=== PATIENT | female | born 1990 | race Caucasian/White ===

== ENCOUNTER 2019-03-08 15:16 | Emergency (ER) | payer MEDICAID, OTHER ==
[~2019-03-08] VITALS: Ht 149.9 cm; Wt 68.0 kg
[2019-03-08 15:41] VITALS: Ht 149.9 cm; Wt 68.0 kg
--- NOTE | 2019-03-08 18:47 | ERD ---
ER Documentation Chief Complaint Chief Complaint pt bib self with c/o chest wall pain x 2wks worse with resp, HPI 29-year-old female, previously healthy, presents to the emergency department, complaining of anterior chest wall pain for 2 weeks. The pain is intermittent, sharp, worsened by deep inspiration. The patient denies shortness of breath, no palpitations. ROS All systems reviewed and are negative except as per history of present illness. Medications Home Meds Active Scripts Ibuprofen* (Motrin*) 400 Mg Tab, 400 MG PO Q6H PRN for PAIN AND OR ELEVATED TEMP, #20 TAB Prov:LIBBY CLARK MD 03/08/19 Reported Medications [None] No Conflict Check 10/14/11 Allergies Allergies: Coded Allergies: No Known Drug Allergy (Verified Allergy, Unknown, 10/14/11) PMhx/Soc Medical and Surgical Hx: pt denies Medical Hx History of Surgery: No Anesthesia Reaction: No Hx Neurological Disorder: No Hx Respiratory Disorders: No Hx Cardiac Disorders: No Hx Psychiatric Problems: No Hx Alcohol Use: No Hx Substance Use: No Hx Tobacco Use: No FmHx Family History: No diabetes, No coronary disease Physical Exam Vitals Vital Signs Date Temp Pulse Resp B/P (MAP) Pulse Ox O2 O2 Flow FiO2 Time Delivery Rate 03/08/19 98.6 80 18 105/52 99 15:41 (69) Physical Exam Const: No acute distress Head: Atraumatic Eyes: Normal Conjunctiva ENT: Normal External Ears, Nose and Mouth. Neck: Full range of motion. No meningismus. Resp: Clear to auscultation bilaterally Cardio: Regular rate and rhythm, no murmurs Abd: Soft, non tender, non distended. Normal bowel sounds Skin: No petechiae or rashes Back: No midline or flank tenderness Ext: No cyanosis, or edema Neur: Awake and alert Psych: Normal Mood and Affect Results 24 hrs EKG read by me: Rate/Rhythm: Regular rate and rhythm at a rate of 81 Intervals: Normal No acute ST changes. No T wave inversion Impression: No evidence of acute ischemia or arrhythmia Procedures/MDM Vital signs stable. Differential diagnosis include but not limited to: URI, PNA, chostochondritis, GERD, musculoskeletal injury, less likely PE, pericarditis, endocarditis. Pertinent Data: 12 Lead ECG: Sinus rhythm, no ST changes, normal T wave, normal intervals Radiology: Chest x-rays: Normal Physical examination and clinical presentation consistent most likely with atypical chest pain most likely secondary to costochondritis. During the ED course the patient remained stable, no new complaints. Results and clinical impression discussed with patient who agrees with management. The patient is stable to be treated outpatient and will be discharged home with a Rx for ibuprofen; some side effects of prescribed medications (headache, rash, nausea, vomiting, diarrhea, drowsiness, habituation, bleeding, hypertension, interactions with other medications) were reviewed. The patient was informed that the evaluation in the emergency department has been done to rule out an acute emergency, therefore, chronic conditions like malignancy or autoimmune diseases have not been evaluated; therefore, the patient was instructed to follow up with the primary care provider in the next 48h. If symptoms persist, worsen or new symptoms develop, then patient should return to the ED immediately. Instructions explained and given directly by me to the patient with acknowledgment and demonstrated understanding. Disclaimer: Inadvertent spelling and grammatical errors are likely due to EHR/dictation software use and do not reflect on the overall quality of patient care. Also, please note that the electronic time recorded on this note does not necessarily reflect the actual time of the patient encounter. Departure Diagnosis: Primary Impression: Chest wall pain Additional Impression: Costochondritis Condition: Stable Additional Instructions: Muchas ld por [facility] para flores servicio. Esperamos que en flores visita a la mikayla de emergencia flores problema medico haya sido solucionado y que se sienta mucho mejor. Para estar seguros que flores mejoria sigue en proceso, le pedimos el favor de hacer marion anne de seguimiento medico con flores doctor primario en los proximos 2-4 lux. Lleve con usted estos documentos y las medicinas recetadas. Si jonas sintomas empeoran, NO SE ESPERE, por favor regrese a mikayla de emergencia INMEDIATAMENTE. En ammon que usted no tenga un mdico de atencin primaria: Llame al mdico o clnica comunitaria de referencia que aparece abajo kayla las horas de consultorio para hacer marion anne para que le vean. CLINICAS: [facility] [phone] [facility] [phone] [facility] [phone] [facility] [phone] [place] [phone] [facility] [phone] LIBBY CERON MD March 08, 2019 18:47
[2019-03-08] MEDS ORDERED: IBUP-1561 PO (18:56)
[2019-03-08 19:50] VITALS: BP 140/89; PULSE 73; RESP 20
== END 2019-03-08 19:51 | disposition home or self-care (01) ==
LOC: FTE 15:16
DX: M94.0 Chondrocostal junction syndrome [Tietze] (principal)
CPT/HCPCS: 71046; Z7502; 93005

== ENCOUNTER 2019-07-23 05:26 | Day surgery (SDC) | payer MEDICAID ==
[2019-07-22 14:35] VITALS: BMI 30.4
[2019-07-23] VITALS (9 sets, daily range): BP systolic 109–145; BP diastolic 76–94; PULSE 70–84; RESP 12–23; Ht 149.9 cm; Wt 76.5 kg
[~2019-07-23] VITALS: Ht 149.9 cm; Wt 76.5 kg
[~2019-07-23 05:26] MED LIST: IBUP-1561 PO
[2019-07-23] MEDS ORDERED: LACTATED RINGER'S 1,000 ML IV SCH (06:00)
[2019-07-23] MEDS ORDERED: CEFAZOLIN 2 GM/50 ML (PMX) 50 ML IVPB ONE (06:00)
[2019-07-23] MEDS ORDERED: BUPIVACAINE 0.5%/EPI (SDV) 30 ML INJ ONE (06:59)
[2019-07-23] MEDS ORDERED: CEFAZOLIN 1 GM INJ ONE (07:20)
[2019-07-23] MEDS ORDERED: DESFLURANE 15 MIN ONE (07:20)
[2019-07-23] MEDS ORDERED: MIDAZOLAM 1 MG/ML 2 ML INJ ONE (07:23)
[2019-07-23] MEDS ORDERED: FENTAnyl 50 MCG/ML VIAL ONE (07:23)
[2019-07-23] MEDS ORDERED: LIDOCAINE 100 MG SYRINGE ONE (07:24)
[2019-07-23] MEDS ORDERED: SUCCINYLCHOLINE CHLORIDE 100 MG/5 ML SYG IV ONE (07:24)
[2019-07-23] MEDS ORDERED: PROPOFOL 20 ML ONE ×2 (07:24→08:17)
[2019-07-23] MEDS ORDERED: ROCURONIUM 50 MG INJ ONE (07:24)
[2019-07-23] MEDS ORDERED: ONDANSETRON 4 MG INJ ONE (07:28)
[2019-07-23] MEDS ORDERED: DEXAMETHASONE 4 MG/ML 5 ML INJ ONE (07:28)
[2019-07-23] MEDS ORDERED: DIPHENHYDRAMINE 50 MG INJ IV PRN (07:30)
[2019-07-23] MEDS ORDERED: MEPERIDINE 25 MG INJ IV PRN (07:30)
[2019-07-23] MEDS ORDERED: hydrALAzine 20 MG INJ IV PRN (07:30)
[2019-07-23] MEDS ORDERED: ONDANSETRON 4 MG INJ IV PRN (07:30)
[2019-07-23] MEDS ORDERED: EPHEDrine 25 MG/5 ML SYG IV PRN (07:30)
[2019-07-23] MEDS ORDERED: OXYCODONE/ACETAMINOPHEN (5/325) TAB PO PRN ×2 (07:30)
[2019-07-23] MEDS ORDERED: FENTAnyl 50 MCG/ML VIAL IV PRN ×3 (07:30)
[2019-07-23] MEDS ORDERED: LABETALOL HCL 20MG INJ IV PRN (07:30)
[2019-07-23] MEDS ORDERED: HYDROmorphONE 1 MG/5 ML IV SYRINGE IV PRN ×3 (07:30)
[2019-07-23] MEDS ORDERED: IPRATROPIUM (NEB) 0.5 MG/2.5 ML AMP HHN PRN (07:30)
[2019-07-23] MEDS ORDERED: ALBUTEROL 0.083% (NEB) 2.5 MG/3 ML AMP HHN PRN (07:30)
[2019-07-23] MEDS ORDERED: BUPIVACAINE 0.5%/EPI (SDV) 30 ML INJ INJ ONE (07:30)
== END 2019-07-23 11:12 | disposition home or self-care (01) ==
LOC: SDS 05:26
PROVIDERS: ATTEND Specialist
DX: Z30.2 Encounter for sterilization (principal)
CPT/HCPCS: 58661; 88302; J0690; J1100; J2001; J2250; J2405; J3010; Z7512; Z7610